=== PATIENT | male | born 1940 | race Hispanic/Latino ===

== ENCOUNTER 2016-10-19 09:14 | Outpatient (CLI) | payer MEDICARE, OTHER ==
[2016-10-19 10:07] LABS: Blood Urea Nitrogen 10 mg/dL (9-20)
--- NOTE | 2016-10-19 12:34 | Cat Scan Report ---
CT ABDOMEN AND PELVIS WITH CONTRAST INDICATION: Abdominal distention. COMPARISON: 07/12/2014. FINDINGS: Abdomen and pelvis CT performed following oral contrast and intravenous administration of 100 cc of Omnipaque 300. LUNG BASES: Stable, normal heart size, sternotomy wires and approximately 6 cm hiatal hernia. Mild lingular scarring and slight increased AP chest diameter. No effusions. ABDOMEN: Subtle diffuse fatty hepatic infiltration again not excluded. Otherwise unremarkable liver, spleen, gallbladder, pancreas, adrenals, IVC and non-hydronephrotic kidneys. Stable approximately 1 cm right interpolar renal cortical cyst, retroaortic left renal vein and mild infrarenal aortic ectasia with maximum caliber of 2.2 cm, axial image 56, series 2. Mild aortic atherosclerotic calcifications. No ascites or significant adenopathy. Opacified GI tract nonobstructive and within normal limits. Normal appendix. Usual colonic stool. PELVIS: Urinary bladder, seminal vesicles, prostate and rectosigmoid appear within normal limits. No free fluid or size significant adenopathy. Moderate to severe L5-S1 disc narrowing with vacuum disc phenomenon again seen. Additional multilevel spinal degenerative spurring as well. Mild bilateral hip degenerative changes also seen. CONCLUSION: 1. No acute CT abnormality in this patient with abdominal and pelvic lipomatosis again seen, as described. 2. Various other findings, including hiatal hernia, possible fatty liver and a small right renal cyst, amongst others, as described. Thank you for the opportunity to participate in this patient's care.
== END 2016-10-19 09:15 | disposition home or self-care (01) ==
LOC: CT 09:14
PROVIDERS: ATTEND Internal Medicine
DX: N28.1 Cyst of kidney, acquired (principal); K44.9 Diaphragmatic hernia without obstruction or gangrene; K76.0 Fatty (change of) liver, not elsewhere classified; I77.819 Aortic ectasia, unspecified site; I70.0 Atherosclerosis of aorta; E88.2 Lipomatosis, not elsewhere classified
CPT/HCPCS: 36415; 74177; 82565; 84520; Q9967

== ENCOUNTER 2018-08-31 13:08 | Outpatient (CLI) | payer MEDICARE ==
--- NOTE | 2018-08-31 14:55 | Ultrasound Report ---
ULTRASOUND ABDOMEN LIMITED: TECHNIQUE: Transabdominal ultrasound with color Doppler interrogation. HISTORY: Scan of liver, alcoholic liver. COMPARISON: 06/11/16. FINDINGS: LIVER: The liver parenchyma is echogenic consistent with diffuse fatty infiltration. No evidence for surface nodularity or mass. BILIARY SYSTEM: Normal. PANCREAS: Partially obscured. No gross abnormality. RIGHT KIDNEY: Within normal limits. 2.3 cm cyst is noted in the mid right kidney. PROXIMAL AORTA: Obscured. ASCITES: None. IMPRESSION: Fatty infiltration of the liver. No obvious cirrhosis or mass. Right renal cyst.
== END 2018-08-31 13:09 | disposition home or self-care (01) ==
LOC: US 13:08
PROVIDERS: ATTEND Internal Medicine
DX: K76.0 Fatty (change of) liver, not elsewhere classified (principal); I10 Essential (primary) hypertension; N28.1 Cyst of kidney, acquired; Z87.891 Personal history of nicotine dependence
CPT/HCPCS: 76705